=== PATIENT | female | born 1975 | race African-American/Black ===

== ENCOUNTER 2018-06-14 21:20 | Emergency (ER) | payer BC, SELFPAY | END 2018-06-14 23:05 | disposition home or self-care (01) | LOC: MADERS 21:20 | DX: B34.9 Viral infection, unspecified (principal); I10 Essential (primary) hypertension | CPT/HCPCS: 99282 ==

== ENCOUNTER 2019-02-14 10:59 | Emergency (ER) | payer BC | END 2019-02-14 13:44 | disposition home or self-care (01) | LOC: MADERS 10:59 | DX: B34.9 Viral infection, unspecified (principal); I10 Essential (primary) hypertension; Z79.899 Other long term (current) drug therapy | CPT/HCPCS: 87804; 99283 ==